=== PATIENT | female | born 1945 | race Native Hawaiian/Other Pacific Islander ===

== ENCOUNTER 2017-04-29 02:34 | Outpatient (CLI) | payer OTHER ==
[~2017-04-29 02:34] MED LIST: ACET-655 PO; CLONIDINE0.2 MG PO; COZAAR100 MG PO; DICL75TA4 PO; FLUOXETINE20 M2 PO; GRALISE600 MG OR; LABETALOL200 MG PO; MELOXICAM7.5 MG OR; METH10TA2 PO; OMEP20CA PO; PANT40TA PO; PERCOCET1 TA3 PO; POLY3350 PO; PROM25TA52 PO; PROZAC10 MG PO; TIZA4TAB5 PO; TRAM50TA PO; TRAZ50TA36 PO
== END 2017-04-29 02:47 | disposition short-term general hospital (02) ==
LOC: AMB 02:34
DX: S81.011A Laceration without foreign body, right knee, initial encounter (principal); W01.0XXA Fall on same level from slipping, tripping and stumbling without subsequent striking against object, initial encounter; Y92.098 Other place in other non-institutional residence as the place of occurrence of the external cause
CPT/HCPCS: A0425; A0427

== ENCOUNTER 2017-04-29 11:31 | Emergency (ER) | payer OTHER ==
[~2017-04-29] VITALS: Ht 167.6 cm; Wt 99.8 kg
[2017-04-29 11:45] VITALS: TEMP 97.8
[2017-04-29 13:19] LABS: PLATELET COUNT 280 K/uL (152-353)
[2017-04-29 13:38] LABS: POTASSIUM 3.5 mmol/L (3.6-5.2); SODIUM 134 mmol/L (136-145)
[2017-04-29 15:30] VITALS: BP 122/68
== END 2017-04-29 15:45 | disposition home or self-care (01) ==
LOC: ED 11:31
PROVIDERS: Emergency Medicine
DX: E87.6 Hypokalemia (principal); N18.4 Chronic kidney disease, stage 4 (severe); T50.901A Poisoning by unspecified drugs, medicaments and biological substances, accidental (unintentional), initial encounter; Y92.89 Other specified places as the place of occurrence of the external cause
CPT/HCPCS: 36415; 80053; 80307; 80320; 81000; 82550; 82553; 84484; 85027; 96374; 99284; J2310

== ENCOUNTER 2017-04-29 19:27 | Emergency (ER) | payer OTHER ==
[~2017-04-29] VITALS: Ht 167.6 cm; Wt 99.8 kg
[2017-04-29 22:29] LABS: PLATELET COUNT 159 K/uL (152-353)
[2017-04-29 22:45] LABS: POTASSIUM 3.5 mmol/L (3.6-5.2); SODIUM 132 mmol/L (136-145)
[2017-04-29 23:58] VITALS: BP 100/60; TEMP 98.5
[2017-05-01] MEDS ORDERED: BUTALBITAL/ACET1 CAP PO (02:06)
[2017-05-01] MEDS ORDERED: CYCL10TA35 PO (02:09)
[2017-05-01] MEDS ORDERED: OXAYDO5 MG PO (02:13)
[2017-05-01] MEDS ORDERED: PAROXETINE40 MG PO (02:14)
[2017-05-01] MEDS ORDERED: SIMV40TA57 PO (02:15)
[2017-05-01] MEDS ORDERED: DOCU100C10 PO (02:16)
[2017-05-01] MEDS ORDERED: TIZA4TAB5 PO (02:19)
[2017-05-01] MEDS ORDERED: CATAPRES-T0.2 MG/21 PO (02:24)
[2017-05-01] MEDS ORDERED: FURO20TA67 PO (02:25)
[2017-05-01] MEDS ORDERED: LABETALOL100 MG PO (02:26)
[2017-05-01] MEDS ORDERED: METHADONE10 MG PO (02:28)
== END 2017-04-30 00:27 | disposition home or self-care (01) ==
LOC: ED 19:27
PROVIDERS: Specialist
DX: G89.29 Other chronic pain (principal); R58 Hemorrhage, not elsewhere classified; T40.601A Poisoning by unspecified narcotics, accidental (unintentional), initial encounter; Y92.89 Other specified places as the place of occurrence of the external cause
CPT/HCPCS: 36415; 80048; 81000; 82550; 82553; 84484; 85027; 99283

== ENCOUNTER 2017-04-30 19:33 | Outpatient (CLI) | payer OTHER ==
[2017-05-01] MEDS ORDERED: BUTALBITAL/ACET1 CAP PO (02:06)
[2017-05-01] MEDS ORDERED: CYCL10TA35 PO (02:09)
[2017-05-01] MEDS ORDERED: OXAYDO5 MG PO (02:13)
[2017-05-01] MEDS ORDERED: PAROXETINE40 MG PO (02:14)
[2017-05-01] MEDS ORDERED: SIMV40TA57 PO (02:15)
[2017-05-01] MEDS ORDERED: DOCU100C10 PO (02:16)
[2017-05-01] MEDS ORDERED: TIZA4TAB5 PO (02:19)
[2017-05-01] MEDS ORDERED: CATAPRES-T0.2 MG/21 PO (02:24)
[2017-05-01] MEDS ORDERED: FURO20TA67 PO (02:25)
[2017-05-01] MEDS ORDERED: LABETALOL100 MG PO (02:26)
[2017-05-01] MEDS ORDERED: METHADONE10 MG PO (02:28)
== END 2017-04-30 19:49 | disposition short-term general hospital (02) ==
LOC: AMB 19:33
DX: R11.2 Nausea with vomiting, unspecified (principal)
CPT/HCPCS: A0425; A0427

== ENCOUNTER 2017-04-30 20:00 | Emergency (ER) | payer OTHER ==
[~2017-04-30] VITALS: Ht 167.6 cm; Wt 97.5 kg
[2017-04-30 20:37] LABS: PLATELET COUNT 338 K/uL (152-353)
[2017-04-30 20:44] LABS: POTASSIUM 3.2 mmol/L (3.6-5.2); SODIUM 135 mmol/L (136-145)
[2017-04-30 20:51] LABS: PARTIAL THROMBOPLASTIN TIME 23.4 SECONDS (24.5-33.6)
[2017-05-01 00:08] VITALS: BP 205/56; TEMP 98
[2017-05-01] MEDS ORDERED: BUTALBITAL/ACET1 CAP PO (02:06)
[2017-05-01] MEDS ORDERED: CYCL10TA35 PO (02:09)
[2017-05-01] MEDS ORDERED: OXAYDO5 MG PO (02:13)
[2017-05-01] MEDS ORDERED: PAROXETINE40 MG PO (02:14)
[2017-05-01] MEDS ORDERED: SIMV40TA57 PO (02:15)
[2017-05-01] MEDS ORDERED: DOCU100C10 PO (02:16)
[2017-05-01] MEDS ORDERED: TIZA4TAB5 PO (02:19)
[2017-05-01] MEDS ORDERED: CATAPRES-T0.2 MG/21 PO (02:24)
[2017-05-01] MEDS ORDERED: FURO20TA67 PO (02:25)
[2017-05-01] MEDS ORDERED: LABETALOL100 MG PO (02:26)
[2017-05-01] MEDS ORDERED: METHADONE10 MG PO (02:28)
== END 2017-05-01 00:21 | disposition still patient (30) ==
LOC: ED 20:00
DX: R11.2 Nausea with vomiting, unspecified (principal); Z79.899 Other long term (current) drug therapy; Z51.81 Encounter for therapeutic drug level monitoring
CPT/HCPCS: 36415; 80053; 80307; 80320; 81000; 82150; 82550; 82553; 83690; 84484; 85027; 85610; 85730; 87077; 87086; 87088; 87186; 96365; 96366; 96374; 96375; 99285; J2405; J2550

== ENCOUNTER 2017-09-22 15:08 | Outpatient (CLI) | payer OTHER ==
[~2017-09-22 15:08] MED LIST changes: +BUTALBITAL/ACET1 CAP PO; +CATAPRES-T0.2 MG/21 PO; +CYCL10TA35 PO; +DOCU100C10 PO; +FURO20TA67 PO; +LABETALOL100 MG PO; +METHADONE10 MG PO; +OXAYDO5 MG PO; +PAROXETINE40 MG PO; +SIMV40TA57 PO
== END 2017-09-22 19:54 | disposition home or self-care (01) ==
LOC: RAD 15:08
DX: M25.561 Pain in right knee (principal)

== ENCOUNTER 2018-01-10 14:53 | Inpatient (IN) | payer OTHER ==
[~2018-01-10] VITALS: Ht 167.6 cm; Wt 84.6 kg
[2018-01-10 15:00] VITALS: BP 140/98; TEMP 98.3
[2018-01-10 15:41] LABS: PLATELET COUNT 305 K/uL (152-353)
[2018-01-10 15:55] LABS: POTASSIUM 4.1 mmol/L (3.6-5.2)
[2018-01-10 16:00] VITALS: BP 159/96
[2018-01-10 17:00] VITALS: BP 163/95; TEMP 98.5
[2018-01-10 18:00] VITALS: BP 168/102
[2018-01-10 19:00] VITALS: BP 202/83; TEMP 98
[2018-01-10 20:00] VITALS: BP 171/75
[2018-01-11] VITALS (8 sets, daily range): BP systolic 149–219; BP diastolic 81–99; TEMP 97.8–98.9; Ht 167.6 cm; Wt 84.6 kg
[2018-01-11 06:22] LABS: PLATELET COUNT 312 K/uL (152-353)
[2018-01-11 06:36] LABS: POTASSIUM 3.3 mmol/L (3.6-5.2)
[2018-01-11] MEDS ORDERED: LABETALOL100 MG PO (14:23)
[2018-01-11] MEDS ORDERED: TRAMADOL HYDROC50 MG PO (14:37)
[2018-01-11] MEDS ORDERED: LORA1TAB17 PO (14:38)
[2018-01-11] MEDS ORDERED: ZOFRAN ODT8 MG (14:39)
[2018-01-11] MEDS ORDERED: METHADONE10 MG PO (14:41)
[2018-01-11] MEDS ORDERED: CELEBREX200 MG PO (14:42)
[2018-01-11] MEDS ORDERED: TIZANIDINE HYDRO4 MG PO (14:44)
[2018-01-11] MEDS ORDERED: COZAAR100 MG PO (14:48)
[2018-01-11] MEDS ORDERED: BUT/APAP/CA3 PO (14:49)
[2018-01-11] MEDS ORDERED: SIMV40TA57 (14:51)
[2018-01-12] VITALS (7 sets, daily range): BP systolic 122–203; BP diastolic 49–100; TEMP 97.9–98.8
[2018-01-12 06:53] LABS: POTASSIUM 4.5 mmol/L (3.6-5.2)
[2018-01-12 07:59] LABS: PLATELET COUNT 94 K/uL (152-353)
[2018-01-13] VITALS: BP 161/58; TEMP 98.8
[2018-01-13 04:24] VITALS: BP 147/71; TEMP 98.7
[2018-01-13 05:50] LABS: PLATELET COUNT 293 K/uL (152-353)
[2018-01-13 05:54] LABS: POTASSIUM 3.5 mmol/L (3.6-5.2)
[2018-01-13 08:03] VITALS: BP 99/65; TEMP 99
[2018-01-13 12:09] VITALS: BP 149/67; TEMP 99
[2018-01-13] MEDS ORDERED: CIPRO500 MG PO (13:43)
[2018-01-13 16:08] VITALS: BP 84/65; TEMP 98.4
== END 2018-01-13 19:30 | disposition home or self-care (01) | DRG 872 ==
LOC: ED 14:53 → MED/SURG 19:10
PROVIDERS: ADMIT Family Medicine
DX: A41.89 Other specified sepsis (principal); F11.23 Opioid dependence with withdrawal; F11.221 Opioid dependence with intoxication delirium; I10 Essential (primary) hypertension; K21.9 Gastro-esophageal reflux disease without esophagitis; M79.7 Fibromyalgia; R73.9 Hyperglycemia, unspecified; L08.89 Other specified local infections of the skin and subcutaneous tissue; B96.89 Other specified bacterial agents as the cause of diseases classified elsewhere
CPT/HCPCS: 36415; 51702; 80048; 80053; 80307; 81000; 83605; 85007; 85027; 87040; 87070; 87077; 87185; 87186; 87205; 96372; 96374; 96375; 99284; J0360; J1630; J1885; J2060; J2405; J2543; J2550; J3480; J3490

== ENCOUNTER 2018-01-16 11:31 | Outpatient (CLI) | payer OTHER ==
[~2018-01-16 11:31] MED LIST changes: +BUT/APAP/CA3 PO; +CELEBREX200 MG PO; +CIPRO500 MG PO; +LORA1TAB17 PO; +SIMV40TA57; +TIZANIDINE HYDRO4 MG PO; +TRAMADOL HYDROC50 MG PO; +ZOFRAN ODT8 MG
== END 2018-01-16 11:46 | disposition short-term general hospital (02) ==
LOC: AMB 11:31
DX: R55 Syncope and collapse (principal); Z91.81 History of falling
CPT/HCPCS: A0425; A0427

== ENCOUNTER 2018-01-16 11:46 | Emergency (ER) | payer OTHER ==
[~2018-01-16] VITALS: Ht 167.6 cm; Wt 84.4 kg
[2018-01-16 12:14] LABS: PLATELET COUNT 290 K/uL (152-353)
[2018-01-16 12:22] LABS: POTASSIUM 3.5 mmol/L (3.6-5.2)
[2018-01-16 15:43] VITALS: BP 138/69; TEMP 97.7
== END 2018-01-16 17:00 | disposition home or self-care (01) ==
LOC: ED 11:54
DX: N18.9 Chronic kidney disease, unspecified (principal); R80.8 Other proteinuria; B37.89 Other sites of candidiasis
CPT/HCPCS: 36415; 80053; 81000; 85027; 96374; 99284; J7120

== ENCOUNTER 2018-02-23 06:07 | Outpatient (CLI) | payer OTHER | END 2018-02-23 06:25 | disposition short-term general hospital (02) | LOC: AMB 06:07 | DX: R11.2 Nausea with vomiting, unspecified (principal) | CPT/HCPCS: A0425; A0427 ==

== ENCOUNTER 2018-02-23 06:27 | Observation (INO) | payer OTHER ==
[~2018-02-23] VITALS: Ht 167.6 cm; Wt 88.1 kg
[2018-02-23] VITALS (7 sets, daily range): BP systolic 156–208; BP diastolic 57–91; TEMP 98.3–98.6; Ht 167.6 cm; Wt 88.1 kg
[2018-02-23 07:28] LABS: PLATELET COUNT 375 K/uL (152-353)
[2018-02-23 07:34] LABS: POTASSIUM 3.7 mmol/L (3.6-5.2)
[2018-02-24 00:02] VITALS: BP 173/71; TEMP 98.8
[2018-02-24 04:06] VITALS: BP 126/92; TEMP 98.3
[2018-02-24 05:50] LABS: PLATELET COUNT 372 K/uL (152-353)
[2018-02-24 06:06] LABS: POTASSIUM 3.6 mmol/L (3.6-5.2)
[2018-02-24 08:25] VITALS: BP 204/98; TEMP 99
== END 2018-02-24 16:30 | disposition home or self-care (01) ==
LOC: ED 06:27 → MED/SURG 12:14
PROVIDERS: Emergency Medicine; ADMIT Family Medicine
DX: A08.39 Other viral enteritis (principal); R11.2 Nausea with vomiting, unspecified; G89.29 Other chronic pain; D72.828 Other elevated white blood cell count; I10 Essential (primary) hypertension; E78.49 Other hyperlipidemia; M79.7 Fibromyalgia
CPT/HCPCS: 51702; 80053; 80307; 81000; 82150; 83690; 85027; 96360; 96361; 96365; 96366; 96374; 96375; 96376; 99220; 99284; G0378; J0360; J1650; J1885; J2060; J2405; J2550; J3490

== ENCOUNTER 2018-02-26 04:07 | Outpatient (CLI) | payer OTHER | END 2018-02-26 04:21 | disposition short-term general hospital (02) | LOC: AMB 04:07 | DX: R55 Syncope and collapse (principal) | CPT/HCPCS: A0425; A0427 ==

== ENCOUNTER 2018-02-26 04:25 | Observation (INO) | payer OTHER ==
[2018-02-26] VITALS (18 sets, daily range): BP systolic 58–196; BP diastolic 37–93; TEMP 97.7–98.5; Ht 167.6 cm; Wt 89.1 kg
[~2018-02-26] VITALS: Ht 167.6 cm; Wt 89.1 kg
[2018-02-26 06:14] LABS: PLATELET COUNT 445 K/uL (152-353)
[2018-02-26 06:20] LABS: POTASSIUM 3.5 mmol/L (3.6-5.2)
[2018-02-26 12:06] LABS: PLATELET COUNT 412 K/uL (152-353)
[2018-02-26 12:24] LABS: POTASSIUM 3.5 mmol/L (3.6-5.2)
[2018-02-27] VITALS: BP 60/40; TEMP 97.6
[2018-02-27 04:00] VITALS: BP 90/48; TEMP 98.1
[2018-02-27 06:23] LABS: PLATELET COUNT 275 K/uL (152-353)
[2018-02-27 06:35] LABS: POTASSIUM 3.5 mmol/L (3.6-5.2)
[2018-02-27 08:04] VITALS: BP 103/47; TEMP 98.6
[2018-02-27 12:34] VITALS: BP 78/40; TEMP 98.8
[2018-02-27 16:05] VITALS: BP 111/48; TEMP 98.4
[2018-02-27 20:00] VITALS: BP 91/45; TEMP 98.4
[2018-02-28 00:06] VITALS: BP 102/48; TEMP 99.4
[2018-02-28 04:00] VITALS: BP 137/59; TEMP 98
[2018-02-28 08:27] VITALS: BP 153/50; TEMP 98.7
[2018-02-28 12:08] VITALS: BP 107/51; TEMP 98.7
== END 2018-02-28 15:02 | disposition home or self-care (01) ==
LOC: ED 04:25 → MED/SURG 07:15
PROVIDERS: Family Medicine; ADMIT Allergy & Immunology
PROC: 0HQ1XZZ Repair Face Skin, External Approach (ICD-10-PCS; principal; 2018-02-26)
DX: S01.21XA Laceration without foreign body of nose, initial encounter (principal); I10 Essential (primary) hypertension; E78.49 Other hyperlipidemia; R55 Syncope and collapse; M79.7 Fibromyalgia; E86.1 Hypovolemia; D64.89 Other specified anemias; N28.9 Disorder of kidney and ureter, unspecified; K52.89 Other specified noninfective gastroenteritis and colitis; W18.39XA Other fall on same level, initial encounter; Y93.89 Activity, other specified; Y92.89 Other specified places as the place of occurrence of the external cause
CPT/HCPCS: 36415; 80053; 81000; 83605; 83690; 85027; 87324; 87449; 96361; 96365; 96374; 96375; 99220; 99284; G0378; J1200; J2405; J3490; J7120

== ENCOUNTER 2018-04-11 20:41 | Outpatient (CLI) | payer OTHER ==
[2018-04-11] MEDS ORDERED: ASPIR-8181 MG PO (23:12)
[2018-04-11] MEDS ORDERED: METHADONE10 MG PO (23:15)
[2018-04-11] MEDS ORDERED: LYRICA75 MG PO (23:16)
== END 2018-04-11 21:01 | disposition short-term general hospital (02) ==
LOC: AMB 20:41
DX: M54.89 Other dorsalgia (principal); W19.XXXA Unspecified fall, initial encounter; Y93.89 Activity, other specified; Y92.018 Other place in single-family (private) house as the place of occurrence of the external cause
CPT/HCPCS: A0425; A0429

== ENCOUNTER 2018-04-11 21:06 | Inpatient (IN) | payer OTHER ==
[~2018-04-11] VITALS: Ht 167.6 cm; Wt 93.2 kg
[2018-04-11 21:23] VITALS: BP 155/81; TEMP 99.5
[2018-04-11 22:00] VITALS: BP 123/51
[2018-04-11 22:48] LABS: PLATELET COUNT 276 K/uL (152-353)
[2018-04-11 22:55] LABS: POTASSIUM 3.7 mmol/L (3.6-5.2); SODIUM 138 mmol/L (136-145)
[2018-04-11 23:00] VITALS: BP 95/61
[2018-04-11] MEDS ORDERED: ASPIR-8181 MG PO (23:12)
[2018-04-11] MEDS ORDERED: METHADONE10 MG PO (23:15)
[2018-04-11] MEDS ORDERED: LYRICA75 MG PO (23:16)
[2018-04-12] VITALS (8 sets, daily range): BP systolic 90–125; BP diastolic 40–53; TEMP 97.7–98.9; Ht 167.6 cm; Wt 93.2 kg
[2018-04-13] VITALS: BP 126/73; TEMP 98.3
[2018-04-13 04:00] VITALS: BP 98/41; TEMP 98.1
[2018-04-13 06:00] LABS: PLATELET COUNT 223 K/uL (152-353)
[2018-04-13 06:17] LABS: POTASSIUM 3.7 mmol/L (3.6-5.2)
[2018-04-13 13:49] VITALS: BP 118/52; TEMP 98.2
[2018-04-13 13:50] VITALS: BP 113/44; TEMP 97.8
[2018-04-13 20:00] VITALS: BP 143/53; TEMP 98.5
[2018-04-14] VITALS: BP 135/60; TEMP 98.1
[2018-04-14 04:00] VITALS: BP 138/57; TEMP 98.2
[2018-04-14 06:12] LABS: PLATELET COUNT 228 K/uL (152-353)
[2018-04-14 07:31] LABS: POTASSIUM 4.3 mmol/L (3.6-5.2)
[2018-04-14] MEDS ORDERED: NITR100C56 PO (09:47)
== END 2018-04-14 10:37 | disposition home or self-care (01) | DRG 605 ==
LOC: ED 21:06 → MED/SURG 04-12 02:08
PROVIDERS: Emergency Medicine; ADMIT Internal Medicine
DX: S00.03XA Contusion of scalp, initial encounter (principal); N39.0 Urinary tract infection, site not specified; I95.89 Other hypotension; B96.20 Unspecified Escherichia coli [E. coli] as the cause of diseases classified elsewhere; M79.7 Fibromyalgia; I10 Essential (primary) hypertension; E78.49 Other hyperlipidemia; W19.XXXA Unspecified fall, initial encounter; Y92.89 Other specified places as the place of occurrence of the external cause; D72.828 Other elevated white blood cell count; Z91.81 History of falling; L30.8 Other specified dermatitis
CPT/HCPCS: 36415; 80053; 80307; 80320; 81000; 82140; 82550; 82553; 84484; 85027; 87077; 87086; 87088; 87186; 93005; 96361; 96365; 99284; J0696; J1650; J1885; J1940; J3490

== ENCOUNTER 2018-04-16 18:01 | Emergency (ER) | payer OTHER ==
[~2018-04-16] VITALS: Ht 167.6 cm; Wt 93.0 kg
[~2018-04-16 18:01] MED LIST changes: +ASPIR-8181 MG PO; +LYRICA75 MG PO; +NITR100C56 PO
[2018-04-16 21:15] VITALS: BP 168/88; TEMP 98.3
== END 2018-04-16 21:15 | disposition home or self-care (01) ==
LOC: ED 18:01
PROC: 0HQKXZZ Repair Right Lower Leg Skin, External Approach (ICD-10-PCS; principal; 2018-04-16)
PROC: 0HDKXZZ Extraction of Right Lower Leg Skin, External Approach (ICD-10-PCS; 2018-04-16)
DX: S81.811A Laceration without foreign body, right lower leg, initial encounter (principal); Z91.81 History of falling; W18.39XA Other fall on same level, initial encounter; Y92.89 Other specified places as the place of occurrence of the external cause
CPT/HCPCS: 96372; 99283; J1885

== ENCOUNTER 2018-04-20 13:26 | Emergency (ER) | payer OTHER ==
[~2018-04-20] VITALS: Ht 167.6 cm; Wt 90.7 kg
[2018-04-20 13:30] VITALS: TEMP 99
[2018-04-20 14:40] VITALS: BP 149/89
== END 2018-04-20 14:40 | disposition home or self-care (01) ==
LOC: ED 13:26
DX: Z51.89 Encounter for other specified aftercare (principal)

== ENCOUNTER 2018-08-01 13:10 | Inpatient (IN) | payer OTHER ==
[2018-08-01] VITALS (31 sets, daily range): BP systolic 71–194; BP diastolic 40–110; TEMP 97.4–98.9; Ht 167.6 cm; Wt 96.6 kg
[~2018-08-01] VITALS: Ht 167.6 cm; Wt 96.6 kg
[2018-08-01 16:11] LABS: PLATELET COUNT 241 K/uL (152-353)
[2018-08-01 16:14] LABS: POTASSIUM 4.1 mmol/L (3.6-5.2)
[2018-08-01 16:34] LABS: PARTIAL THROMBOPLASTIN TIME 23.5 SECONDS (24.5-33.6)
[2018-08-01] MEDS ORDERED: MIRALAX3350 N1 PO (17:23)
[2018-08-01] MEDS ORDERED: CARV6.25 PO (17:27)
[2018-08-02] VITALS (68 sets, daily range): BP systolic 81–146; BP diastolic 38–82; TEMP 97.7–98.3
[2018-08-02 06:21] LABS: PLATELET COUNT 237 K/uL (152-353)
[2018-08-02 06:26] LABS: POTASSIUM 3.8 mmol/L (3.6-5.2)
[2018-08-03] VITALS (28 sets, daily range): BP systolic 79–145; BP diastolic 42–102; TEMP 97.7–98.5
[2018-08-04] VITALS (17 sets, daily range): BP systolic 90–127; BP diastolic 47–79; TEMP 97.8–98.3
[2018-08-04 04:42] LABS: PLATELET COUNT 213 K/uL (152-353)
[2018-08-04 04:58] LABS: POTASSIUM 4.1 mmol/L (3.6-5.2)
[2018-08-05] VITALS: BP 121/73; TEMP 98.4
[2018-08-05 04:00] VITALS: BP 105/64; TEMP 97.6
[2018-08-05 08:06] VITALS: BP 123/60; TEMP 98
[2018-08-05 12:06] VITALS: BP 103/69; TEMP 98.2
== END 2018-08-05 12:15 | disposition home or self-care (01) | DRG 308 ==
LOC: MED/SURG 13:10 → ICU 14:20 → MED/SURG 08-04 15:30
PROVIDERS: Internal Medicine; ADMIT Internal Medicine
DX: I48.91 Unspecified atrial fibrillation (principal); I50.21 Acute systolic (congestive) heart failure; F41.8 Other specified anxiety disorders; G89.4 Chronic pain syndrome; J44.9 Chronic obstructive pulmonary disease, unspecified; R00.0 Tachycardia, unspecified; R09.02 Hypoxemia; I95.89 Other hypotension; M79.7 Fibromyalgia; K21.9 Gastro-esophageal reflux disease without esophagitis; R13.19 Other dysphagia; I11.0 Hypertensive heart disease with heart failure
CPT/HCPCS: 36415; 80048; 80053; 81000; 84439; 84443; 85027; 85610; 85730; 93005; 93306; 94760; J1650; J2405; J3490; Q9963

== ENCOUNTER 2018-10-01 08:10 | Observation (INO) | payer OTHER ==
[~2018-10-01] VITALS: Ht 167.6 cm; Wt 99.3 kg
[2018-10-01] VITALS (17 sets, daily range): BP systolic 74–146; BP diastolic 35–81; TEMP 98–101.8; Ht 167.6 cm; Wt 99.3 kg
[~2018-10-01 08:10] MED LIST changes: +CARV6.25 PO; +MIRALAX3350 N1 PO
[2018-10-01 09:26] LABS: PLATELET COUNT 221 K/uL (152-353)
[2018-10-01 09:36] LABS: POTASSIUM 3.9 mmol/L (3.6-5.2); SODIUM 137 mmol/L (136-145)
[2018-10-01 09:51] LABS: PARTIAL THROMBOPLASTIN TIME 28.1 SECONDS (24.5-33.6)
[2018-10-01] MEDS ORDERED: LYRICA75 MG PO (15:48)
[2018-10-01] MEDS ORDERED: COLACE CLEAR50 MG PO (15:49)
[2018-10-01] MEDS ORDERED: ELIQUIS5 MG (15:53)
[2018-10-02 04:00] VITALS: BP 133/73; TEMP 98.4
[2018-10-02 05:35] LABS: PLATELET COUNT 170 K/uL (152-353)
[2018-10-02 06:03] LABS: POTASSIUM 3.6 mmol/L (3.6-5.2); SODIUM 141 mmol/L (136-145)
[2018-10-02 08:00] VITALS: BP 167/90; TEMP 97.8
== END 2018-10-02 10:55 | disposition home or self-care (01) ==
LOC: ED 08:10 → MED/SURG 11:24 → ICU 11:25 → MED/SURG 22:48
PROVIDERS: Family Medicine; ADMIT Hospitalist
DX: I48.2 Chronic atrial fibrillation (principal); Z79.01 Long term (current) use of anticoagulants; R07.89 Other chest pain; J44.1 Chronic obstructive pulmonary disease with (acute) exacerbation; J18.8 Other pneumonia, unspecified organism; R11.2 Nausea with vomiting, unspecified; E87.6 Hypokalemia; E46 Unspecified protein-calorie malnutrition; D72.828 Other elevated white blood cell count; R06.09 Other forms of dyspnea; E86.0 Dehydration; I50.9 Heart failure, unspecified; R73.9 Hyperglycemia, unspecified
CPT/HCPCS: 36415; 36600; 80053; 80307; 81000; 82550; 82805; 83605; 83880; 84484; 85027; 85379; 85610; 85730; 87040; 87651; 93005; 94640; 94664; 94760; 96365; 96366; 99220; 99284; G0378; J0456; J0696; J3490

== ENCOUNTER 2018-10-03 14:24 | Outpatient (CLI) | payer OTHER ==
[~2018-10-03 14:24] MED LIST changes: +COLACE CLEAR50 MG PO; +ELIQUIS5 MG
== END 2018-10-03 14:55 | disposition short-term general hospital (02) ==
LOC: AMB 14:24
DX: J98.01 Acute bronchospasm (principal); R06.09 Other forms of dyspnea; I48.91 Unspecified atrial fibrillation
CPT/HCPCS: A0425; A0429

== ENCOUNTER 2018-11-24 15:06 | Outpatient (CLI) | payer OTHER | END 2018-11-24 22:27 | disposition home or self-care (01) | LOC: LABW 15:06 | DX: I48.0 Paroxysmal atrial fibrillation (principal); Z79.01 Long term (current) use of anticoagulants; Z79.899 Other long term (current) drug therapy | CPT/HCPCS: 36415; 85610 ==

== ENCOUNTER 2018-12-04 15:46 | Outpatient (CLI) | payer OTHER | END 2018-12-04 21:59 | disposition home or self-care (01) | LOC: LABW 15:46 | DX: I48.0 Paroxysmal atrial fibrillation (principal); Z79.01 Long term (current) use of anticoagulants; Z79.899 Other long term (current) drug therapy | CPT/HCPCS: 36415; 85610 ==

== ENCOUNTER 2019-01-12 12:44 | Outpatient (CLI) | payer OTHER | END 2019-01-12 19:13 | disposition home or self-care (01) | LOC: LABW 12:44 | DX: I48.0 Paroxysmal atrial fibrillation (principal); Z79.01 Long term (current) use of anticoagulants; Z79.899 Other long term (current) drug therapy | CPT/HCPCS: 36415; 85610 ==

== ENCOUNTER 2019-01-23 14:05 | Outpatient (CLI) | payer OTHER | END 2019-01-23 19:41 | disposition home or self-care (01) | LOC: LABW 14:05 | DX: I48.0 Paroxysmal atrial fibrillation (principal); Z79.01 Long term (current) use of anticoagulants; Z79.899 Other long term (current) drug therapy | CPT/HCPCS: 36415; 85610 ==

== ENCOUNTER 2019-04-07 23:03 | Outpatient (CLI) | payer OTHER | END 2019-04-07 23:07 | disposition short-term general hospital (02) | LOC: AMB 23:03 | DX: R11.2 Nausea with vomiting, unspecified (principal); R53.1 Weakness; R42 Dizziness and giddiness | CPT/HCPCS: A0425; A0427 ==

== ENCOUNTER 2019-04-07 23:11 | Inpatient (IN) | payer OTHER ==
[~2019-04-07] VITALS: Ht 167.6 cm; Wt 98.0 kg
[2019-04-07 23:19] VITALS: BP 166/91; TEMP 97.9
[2019-04-07 23:39] LABS: PLATELET COUNT 227 K/uL (152-353)
[2019-04-07 23:46] LABS: POTASSIUM 4.3 mmol/L (3.6-5.2)
[2019-04-08] VITALS (24 sets, daily range): BP systolic 109–201; BP diastolic 54–104; TEMP 98.1–99.3; Ht 167.6 cm; Wt 98.0 kg
[2019-04-09] VITALS (13 sets, daily range): BP systolic 107–146; BP diastolic 42–81; TEMP 97.9–98.9
[2019-04-09 05:46] LABS: PLATELET COUNT 251 K/uL (152-353)
[2019-04-09 06:02] LABS: POTASSIUM 3.5 mmol/L (3.6-5.2)
[2019-04-09] MEDS ORDERED: FURO40TA93 PO ×2 (10:36)
[2019-04-09] MEDS ORDERED: OXYCODONE HYDROC5 MG PO ×2 (10:37)
[2019-04-09] MEDS ORDERED: DILTIAZEM HCL180 M2 PO ×2 (10:41)
[2019-04-09] MEDS ORDERED: LISI5TAB10 PO ×2 (10:44)
[2019-04-09] MEDS ORDERED: TIZANIDINE HYDRO4 MG PO ×2 (10:46)
[2019-04-09] MEDS ORDERED: CARV12.5 PO ×2 (10:47)
[2019-04-09] MEDS ORDERED: WARF5TAB6 PO ×2 (10:49)
== END 2019-04-09 12:10 | disposition home or self-care (01) | DRG 392 ==
LOC: ED 23:11 → PCU 04-08 03:48
PROVIDERS: Internal Medicine; ADMIT Emergency Medicine
DX: K52.89 Other specified noninfective gastroenteritis and colitis (principal); I48.91 Unspecified atrial fibrillation; D72.828 Other elevated white blood cell count; E78.49 Other hyperlipidemia; M79.7 Fibromyalgia; G89.4 Chronic pain syndrome; I50.9 Heart failure, unspecified; I11.0 Hypertensive heart disease with heart failure
CPT/HCPCS: 36415; 80053; 82150; 82550; 82553; 83690; 84443; 84484; 85027; 93005; 94760; 96360; 96361; 96374; 96375; 99285; J0360; J0696; J2060; J2175; J2405; J2550; J3490

== ENCOUNTER 2019-04-17 14:28 | Outpatient (CLI) | payer OTHER ==
[~2019-04-17 14:28] MED LIST changes: +CARV12.5 PO; +DILTIAZEM HCL180 M2 PO; +FURO40TA93 PO; +LISI5TAB10 PO; +OXYCODONE HYDROC5 MG PO; +WARF5TAB6 PO
== END 2019-04-17 22:02 | disposition home or self-care (01) ==
LOC: LABW 14:28
DX: I48.0 Paroxysmal atrial fibrillation (principal); Z79.01 Long term (current) use of anticoagulants; Z79.899 Other long term (current) drug therapy
CPT/HCPCS: 36415; 85610

== ENCOUNTER 2020-01-07 13:39 | Outpatient (CLI) | payer OTHER | END 2020-01-07 19:11 | disposition home or self-care (01) | LOC: MAMMO 13:39 | DX: Z12.31 Encounter for screening mammogram for malignant neoplasm of breast (principal) ==

== ENCOUNTER 2020-11-16 21:40 | Emergency (ER) | payer OTHER ==
[~2020-11-16] VITALS: Ht 167.6 cm; Wt 95.3 kg
[2020-11-16 22:08] LABS: PLATELET COUNT 245 K/uL (152-353)
[2020-11-16 22:20] LABS: POTASSIUM 4.4 mmol/L (3.6-5.2)
[2020-11-16 22:28] LABS: PARTIAL THROMBOPLASTIN TIME 27.1 SECONDS (24.5-33.6)
[2020-11-16 23:00] VITALS: BP 127/64; TEMP 98.2
== END 2020-11-16 23:00 | disposition home or self-care (01) ==
LOC: ED 21:40
PROVIDERS: Hospitalist
PROC: 0HQLXZZ Repair Left Lower Leg Skin, External Approach (ICD-10-PCS; principal; 2020-11-16)
PROC: 2W3MX1Z Immobilization of Left Lower Extremity using Splint (ICD-10-PCS; 2020-11-16)
DX: S81.012A Laceration without foreign body, left knee, initial encounter (principal); S83.8X2A Sprain of other specified parts of left knee, initial encounter; I48.91 Unspecified atrial fibrillation; W18.39XA Other fall on same level, initial encounter; Y92.89 Other specified places as the place of occurrence of the external cause
CPT/HCPCS: 80048; 80320; 85027; 85610; 85730; 96372; 99283; J0690; J1885; J7040

== ENCOUNTER 2021-05-25 15:01 | Outpatient (CLI) | payer OTHER | END 2021-05-25 19:04 | disposition home or self-care (01) | LOC: RESP 15:01 | PROVIDERS: ATTEND Specialist | DX: R00.2 Palpitations (principal); R06.02 Shortness of breath; I48.91 Unspecified atrial fibrillation; R06.09 Other forms of dyspnea; I10 Essential (primary) hypertension | CPT/HCPCS: 93225 ==

== ENCOUNTER 2021-07-21 08:17 | Outpatient (CLI) | payer OTHER ==
[~2021-07-21] VITALS: Ht 30.5 cm; Wt 0.5 kg
== END 2021-07-21 19:26 | disposition home or self-care (01) ==
LOC: NM 08:17
PROVIDERS: ATTEND Specialist
DX: R00.2 Palpitations (principal); R06.02 Shortness of breath; I48.91 Unspecified atrial fibrillation; R06.09 Other forms of dyspnea; I10 Essential (primary) hypertension
CPT/HCPCS: A9500; J2785

== ENCOUNTER 2021-08-28 14:43 | Outpatient (CLI) | payer OTHER | END 2021-08-28 21:20 | disposition home or self-care (01) | LOC: MAMMO 14:43 | PROVIDERS: ATTEND Family Medicine | DX: Z12.31 Encounter for screening mammogram for malignant neoplasm of breast (principal) ==

== ENCOUNTER 2021-09-17 19:38 | Outpatient (CLI) | payer OTHER | END 2021-09-17 23:00 | LOC: LABW 19:38 | PROVIDERS: ATTEND Nurse Practitioner Family | DX: R06.00 Dyspnea, unspecified (principal) ==

== ENCOUNTER 2021-09-17 19:52 | Outpatient (CLI) | payer OTHER ==
[2021-09-17 20:23] LABS: PLATELET COUNT 210 K/uL (152-353)
[2021-09-17 20:31] LABS: POTASSIUM 4.1 mmol/L (3.6-5.2)
== END 2021-09-17 23:00 ==
LOC: RAD 19:52
PROVIDERS: ATTEND Nurse Practitioner Family
DX: R06.00 Dyspnea, unspecified (principal)
CPT/HCPCS: 36415; 80053; 82550; 82553; 83880; 84484; 85027

== ENCOUNTER 2021-12-05 14:57 | Emergency (ER) | payer OTHER ==
[~2021-12-05] VITALS: Ht 167.6 cm; Wt 95.3 kg
[2021-12-05 14:59] VITALS: TEMP 97.9
[2021-12-05 15:55] LABS: PLATELET COUNT 298 K/uL (152-353)
[2021-12-05 15:59] LABS: POTASSIUM 3.6 mmol/L (3.6-5.2)
[2021-12-05 17:30] VITALS: BP 144/84
== END 2021-12-05 17:33 | disposition home or self-care (01) ==
LOC: ED 14:57
PROVIDERS: Emergency Medicine
DX: G89.4 Chronic pain syndrome (principal)
CPT/HCPCS: 80048; 85027; 96372; 99283; J2175; J2405

== ENCOUNTER 2021-12-05 20:06 | Emergency (ER) | payer OTHER ==
[~2021-12-05] VITALS: Ht 167.6 cm; Wt 95.3 kg
[2021-12-05 20:06] VITALS: TEMP 97.7
[2021-12-05 20:59] LABS: PLATELET COUNT 297 K/uL (152-353)
[2021-12-05 21:07] LABS: POTASSIUM 3.8 mmol/L (3.6-5.2)
[2021-12-05 22:44] VITALS: BP 173/90
== END 2021-12-05 22:45 | disposition home or self-care (01) ==
LOC: ED 20:06
PROVIDERS: Emergency Medicine
DX: R11.2 Nausea with vomiting, unspecified (principal); Z79.891 Long term (current) use of opiate analgesic
CPT/HCPCS: 36415; 80053; 80307; 81002; 82150; 83690; 85027; 96365; 96366; 99284; J2550

== ENCOUNTER 2021-12-07 12:33 | Emergency (ER) | payer OTHER ==
[~2021-12-07] VITALS: Ht 167.6 cm; Wt 95.3 kg
[2021-12-07 13:17] LABS: PLATELET COUNT 365 K/uL (152-353)
[2021-12-07 13:31] LABS: POTASSIUM 3.9 mmol/L (3.6-5.2)
[2021-12-07 14:40] LABS: PARTIAL THROMBOPLASTIN TIME 27.4 SECONDS (24.5-33.6)
[2021-12-07 16:30] VITALS: BP 148/72; TEMP 97.6
== END 2021-12-07 16:30 | disposition short-term general hospital (02) ==
LOC: ED 12:33
PROVIDERS: Emergency Medicine Emergency Medical Services
PROC: 0HQ0XZZ Repair Scalp Skin, External Approach (ICD-10-PCS; principal; 2021-12-07)
DX: I21.4 Non-ST elevation (NSTEMI) myocardial infarction (principal); R55 Syncope and collapse; S01.01XA Laceration without foreign body of scalp, initial encounter; R30.0 Dysuria; I10 Essential (primary) hypertension; F17.210 Nicotine dependence, cigarettes, uncomplicated; W01.198A Fall on same level from slipping, tripping and stumbling with subsequent striking against other object, initial encounter; Y92.89 Other specified places as the place of occurrence of the external cause
CPT/HCPCS: 80048; 81000; 83605; 83735; 84484; 85027; 85610; 85730; 87040; 87077; 87086; 87088; 87186; 93005; 96360; 96365; 96375; 99284; J1644; J1956; J2001; J2405

== ENCOUNTER 2022-04-30 21:25 | Observation (INO) | payer OTHER ==
[~2022-04-30] VITALS: Ht 167.6 cm; Wt 97.6 kg
[~2022-04-30 21:25] MED LIST changes: -DILTIAZEM HCL180 M2 PO; +DILTIAZEM HYDR180 M1 PO; -ELIQUIS5 MG; +ELIQUIS5 MG PO; -FURO40TA93 PO
[2022-04-30 21:30] VITALS: BP 158/80; TEMP 97.6
[2022-04-30 22:07] LABS: PLATELET COUNT 222 K/uL (152-353)
[2022-04-30 22:18] LABS: POTASSIUM 3.5 mmol/L (3.6-5.2)
[2022-04-30 22:31] VITALS: BP 151/47
[2022-05-01 03:44] VITALS: BP 154/100; TEMP 97.5; Ht 167.6 cm; Wt 97.6 kg
[2022-05-01 04:00] VITALS: BP 159/86; TEMP 98.5
[2022-05-01 05:31] LABS: PLATELET COUNT 221 K/uL (152-353)
[2022-05-01 06:02] LABS: POTASSIUM 3.8 mmol/L (3.6-5.2)
[2022-05-01 07:58] VITALS: BP 159/85; TEMP 99.2
[2022-05-01] MEDS ORDERED: BELBUCA750 MCG BU (10:43)
[2022-05-01] MEDS ORDERED: OMEP20CA PO (10:44)
[2022-05-01] MEDS ORDERED: ESCI20TA PO (10:44)
[2022-05-01] MEDS ORDERED: TRAMADOL HCL100 MG PO (10:45)
[2022-05-01] MEDS ORDERED: METHADONE10 MG PO (10:51)
[2022-05-01 12:00] VITALS: BP 158/73; TEMP 98.8
== END 2022-05-01 12:59 | disposition home or self-care (01) ==
LOC: ED 21:25 → MED/SURG 05-01 00:13
PROVIDERS: ADMIT Family Medicine; ATTEND Internal Medicine
DX: T40.491A Poisoning by other synthetic narcotics, accidental (unintentional), initial encounter (principal); I10 Essential (primary) hypertension; E78.49 Other hyperlipidemia; M15.8 Other polyosteoarthritis; M79.7 Fibromyalgia; Y92.9 Unspecified place or not applicable
CPT/HCPCS: 36415; 80053; 80143; 80179; 80307; 80320; 81002; 85027; 93005; 96361; 96374; 96375; 99220; 99284; G0378; J1200; J2060

== ENCOUNTER 2022-06-13 21:23 | Observation (INO) | payer OTHER ==
[~2022-06-13] VITALS: Ht 167.6 cm; Wt 94.0 kg
[~2022-06-13 21:23] MED LIST changes: +BELBUCA750 MCG BUC; +ESCI20TA PO; -SIMV40TA57; +TRAMADOL HCL100 MG PO
[2022-06-13 21:30] VITALS: BP 169/102; TEMP 100.9
[2022-06-13 22:10] LABS: PLATELET COUNT 194 K/uL (152-353)
[2022-06-13 22:17] LABS: POTASSIUM 4.6 mmol/L (3.6-5.2)
[2022-06-13 23:46] VITALS: BP 118/96; TEMP 97.3; Ht 167.6 cm; Wt 94.0 kg
[2022-06-14 03:36] VITALS: BP 103/66; TEMP 98.4
[2022-06-14 05:30] LABS: PLATELET COUNT 141 K/uL (152-353)
[2022-06-14 05:40] LABS: PARTIAL THROMBOPLASTIN TIME 28.1 SECONDS (24.5-33.6)
[2022-06-14 08:00] VITALS: BP 118/78; TEMP 97.4
[2022-06-14] MEDS ORDERED: METH10TA2 PO (09:32)
[2022-06-14] MEDS ORDERED: TESSALON PER100 MG PO (10:04)
[2022-06-14] MEDS ORDERED: CEFD300C2 PO (10:04)
[2022-06-14] MEDS ORDERED: OMEP20CA PO (10:07)
== END 2022-06-14 11:55 | disposition home or self-care (01) ==
LOC: ED 21:23 → MED/SURG 22:47
PROVIDERS: ADMIT Family Medicine; ATTEND Internal Medicine
DX: G92.8 Other toxic encephalopathy (principal); J44.1 Chronic obstructive pulmonary disease with (acute) exacerbation; R06.89 Other abnormalities of breathing; R09.02 Hypoxemia; J18.9 Pneumonia, unspecified organism; G89.29 Other chronic pain; D64.89 Other specified anemias; R41.82 Altered mental status, unspecified; R06.02 Shortness of breath
CPT/HCPCS: 36415; 36600; 80053; 80307; 81002; 82550; 82805; 83880; 84484; 85027; 85379; 85610; 85730; 86140; 93005; 94664; 94760; 96360; 96361; 96367; 96372; 96375; 99221; 99284; J1956; G0378; J0456; J1650; J2930

== ENCOUNTER 2022-09-06 17:01 | Observation (INO) | payer OTHER ==
[~2022-09-06] VITALS: Ht 167.6 cm; Wt 85.0 kg
[2022-09-06 17:01] VITALS: BP 146/57; TEMP 96.6
[~2022-09-06 17:01] MED LIST changes: +CEFD300C2 PO; +TESSALON PER100 MG PO
[2022-09-06 17:24] LABS: PLATELET COUNT 218 K/uL (152-353)
[2022-09-06 17:34] LABS: POTASSIUM 4.3 mmol/L (3.6-5.2)
[2022-09-06 17:40] LABS: PARTIAL THROMBOPLASTIN TIME 30.6 SECONDS (23.9-36.7)
[2022-09-06 17:43] VITALS: BP 147/88
[2022-09-06 18:33] VITALS: BP 161/81
[2022-09-06 19:01] VITALS: BP 148/59
[2022-09-06] MEDS ORDERED: OMEP20CA PO (20:45)
[2022-09-06] MEDS ORDERED: TAZTIA XT180 MG PO (20:55)
[2022-09-06] MEDS ORDERED: [UNRECOGNIZED DRUG - OTHER] PO (20:59)
[2022-09-07] VITALS: BP 131/58; TEMP 98.3
[2022-09-07 01:41] VITALS: BP 142/94; TEMP 98.3; Ht 167.6 cm; Wt 85.0 kg
[2022-09-07 04:00] VITALS: BP 108/55; TEMP 98.7
[2022-09-07 08:00] VITALS: BP 122/62; TEMP 98.6
[2022-09-07] MEDS ORDERED: ELIQUIS5 MG PO (09:53)
[2022-09-07] MEDS ORDERED: CARV12.5 PO (09:53)
[2022-09-07] MEDS ORDERED: TAZTIA XT180 MG PO (09:53)
[2022-09-07] MEDS ORDERED: ESCI20TA PO (09:54)
[2022-09-07] MEDS ORDERED: OMEP20CA PO (09:55)
[2022-09-07] MEDS ORDERED: LISI5TAB10 PO (09:55)
[2022-09-07] MEDS ORDERED: FURO20TA67 PO (09:55)
[2022-09-07] MEDS ORDERED: SIMV40TA57 PO (09:56)
[2022-09-07 09:59] LABS: PLATELET COUNT 190 K/uL (152-353)
[2022-09-07 12:00] VITALS: BP 118/47; TEMP 98.5
== END 2022-09-07 15:39 | disposition home or self-care (01) ==
LOC: EDSTATUS 17:01 → ED 17:01 → MED/SURG 18:33
PROVIDERS: ADMIT Family Medicine; ATTEND Internal Medicine
DX: R07.89 Other chest pain (principal); F41.8 Other specified anxiety disorders; R06.02 Shortness of breath; I48.91 Unspecified atrial fibrillation; Z79.01 Long term (current) use of anticoagulants; Z79.899 Other long term (current) drug therapy
CPT/HCPCS: 36415; 80053; 80307; 81002; 82150; 82550; 83690; 83735; 83880; 84100; 84443; 84484; 85027; 85610; 85730; 93005; 94760; 96361; 96372; 99221; 99284; G0378; J1650; J2405

== ENCOUNTER 2022-09-27 00:10 | Observation (INO) | payer OTHER ==
[~2022-09-27] VITALS: Ht 167.6 cm; Wt 87.7 kg
[2022-09-27] VITALS (16 sets, daily range): BP systolic 148–190; BP diastolic 72–102; TEMP 97.3–99; Ht 167.6 cm; Wt 87.7 kg
[~2022-09-27 00:10] MED LIST changes: +CIPR500T PO; +PREDNISONE10 MG PO; +TAZTIA XT180 MG PO; +[UNRECOGNIZED DRUG - OTHER] PO
[2022-09-27 01:19] LABS: PLATELET COUNT 301 K/uL (152-353)
[2022-09-27 01:22] LABS: POTASSIUM 3.8 mmol/L (3.6-5.2)
[2022-09-27] MEDS ORDERED: OMEP20CA PO (10:54)
[2022-09-27] MEDS ORDERED: CARV12.5 PO (10:56)
[2022-09-27] MEDS ORDERED: ESCI20TA PO (10:57)
[2022-09-27] MEDS ORDERED: ELIQUIS5 MG PO (10:57)
[2022-09-27] MEDS ORDERED: FURO20TA67 PO (10:58)
[2022-09-27] MEDS ORDERED: SIMV40TA57 PO (10:59)
[2022-09-27] MEDS ORDERED: DILTIAZEM HCL180 M2 PO (10:59)
[2022-09-27] MEDS ORDERED: LISI5TAB10 PO (11:00)
== END 2022-09-27 17:20 | disposition home or self-care (01) ==
LOC: ED 00:10 → MED/SURG 09:05
PROVIDERS: Family Medicine; ADMIT Internal Medicine; ATTEND Internal Medicine
DX: R11.2 Nausea with vomiting, unspecified (principal); R45.1 Restlessness and agitation; F11.23 Opioid dependence with withdrawal; I10 Essential (primary) hypertension; I48.91 Unspecified atrial fibrillation; Z79.01 Long term (current) use of anticoagulants; K21.9 Gastro-esophageal reflux disease without esophagitis; F41.8 Other specified anxiety disorders
CPT/HCPCS: 36415; 80053; 80307; 81002; 85027; 96361; 96372; 96374; 96375; 96376; 99221; 99284; G0378; J0360; J1885; J2060; J2405; J2550; J2765; J3490

== ENCOUNTER 2022-09-30 09:58 | Observation (INO) | payer OTHER ==
[~2022-09-30] VITALS: Ht 167.6 cm; Wt 86.3 kg
[2022-09-30] VITALS (8 sets, daily range): BP systolic 127–167; BP diastolic 74–109; TEMP 97.6–98.5; Ht 167.6 cm; Wt 86.3 kg
[~2022-09-30 09:58] MED LIST changes: +DILTIAZEM HCL180 M2 PO
[2022-09-30 10:29] LABS: PLATELET COUNT 391 K/uL (152-353)
[2022-09-30 10:39] LABS: POTASSIUM 3.5 mmol/L (3.6-5.2)
[2022-09-30] MEDS ORDERED: ONDANSETRON4 M2 PO (15:24)
[2022-09-30] MEDS ORDERED: ELIQUIS5 MG PO (15:26)
[2022-09-30] MEDS ORDERED: STOOL SOFTNR100 MG PO (15:35)
[2022-10-01] VITALS: BP 101/58; TEMP 98.7
[2022-10-01 04:00] VITALS: BP 102/58; BP 79/46; TEMP 98.8
[2022-10-01 05:36] LABS: PLATELET COUNT 304 K/uL (152-353)
[2022-10-01 05:40] LABS: POTASSIUM 3.9 mmol/L (3.6-5.2)
[2022-10-01 08:00] VITALS: BP 76/41; TEMP 97.4
[2022-10-01 08:39] VITALS: BP 90/62
== END 2022-10-01 15:11 | disposition home or self-care (01) ==
LOC: ED 09:58 → MED/SURG 12:40
PROVIDERS: Family Medicine; ADMIT Nurse Practitioner Family; ATTEND Internal Medicine Endocrinology, Diabetes & Metabolism
DX: F11.23 Opioid dependence with withdrawal (principal); R11.2 Nausea with vomiting, unspecified; R10.9 Unspecified abdominal pain; G89.4 Chronic pain syndrome; E78.49 Other hyperlipidemia; N18.32 Chronic kidney disease, stage 3b; F41.8 Other specified anxiety disorders; I12.9 Hypertensive chronic kidney disease with stage 1 through stage 4 chronic kidney disease, or unspecified chronic kidney disease
CPT/HCPCS: 36415; 80048; 80053; 81002; 83690; 84484; 85027; 93005; 96361; 96374; 96376; 99221; 99284; G0378; J0360; J0500; J2405